=== PATIENT | female | born 1970 | race Two or more races ===

== ENCOUNTER 2021-10-11 18:30 | Inpatient (IN) | payer OTHER ==
[~2021-10-11] VITALS: Ht 154.9 cm; Wt 59.5 kg
[2021-10-11 19:42] LABS: BACTERIA,URINE FEW /HPF (0-FEW); RBC,URINE 0 /HPF (0-2); WBC,URINE OCC /HPF (0-4)
[2021-10-11 19:45] LABS: BASO # 0.1 x10^3/uL (0.0-0.2); BASO % 1 % (0-3); EOS # 0.1 x10^3/uL (0.0-0.7); EOS % 2 % (0-3); LYMPH # 3.1 x10^3/uL (1.0-4.8); LYMPH % 40 % (24-48); MEAN CORPUSCULAR HEMOGLOBIN 19 pg (25-35); MEAN CORPUSCULAR HGB CONC 30 g/dL (31-37); MEAN CORPUSCULAR VOLUME 62 fL (79-100); MONO # 0.6 x10^3/uL (0.0-1.1); MONO % 7 % (0-9); NEUT # 3.9 x10^3/uL (1.8-7.7); NEUT % 50 % (31-73); PLATELET COUNT 607 x10^3/uL (140-400); RED BLOOD COUNT 2.91 x10^6/uL (3.50-5.40); RED CELL DISTRIBUTION WIDTH 18.9 % (11.5-14.5); WHITE BLOOD COUNT 7.9 x10^3/uL (4.0-11.0)
[2021-10-11 19:47] LABS: HEMOGLOBIN 5.4 g/dL (12.0-15.5)
[2021-10-11 19:53] LABS: CALCIUM 8.3 mg/dL (8.5-10.1); CREATININE 0.6 mg/dL (0.6-1.0); GFR 105.8; POTASSIUM 3.8 mmol/L (3.5-5.1)
[2021-10-11 19:59] LABS: ALBUMIN/GLOBULIN RATIO 0.8 (1.0-1.7); TOTAL BILIRUBIN 0.1 mg/dL (0.2-1.0); TOTAL PROTEIN 6.8 g/dL (6.4-8.2)
[2021-10-11] MEDS ORDERED: ACETAMINOPHEN 325 MG TABLET. PO PRN (20:00)
--- NOTE | 2021-10-11 20:22 | RAD ---
Single view chest dated 10/11/2021 8:19 PM: COMPARISON: None Clinical Indication: Fatigue. Anemia.. Findings: Single upright portable exam of the chest was performed. Heart and mediastinal contours within normal limits. Prominent perihilar linear markings, nonspecific. No consolidation or pleural effusion. No p neumothorax. IMPRESSION: No acute radiographic abnormality. Electronically signed by: Nathanael Amaya MD (10/11/2021 8:19 PM) [facility]
[2021-10-11 20:25] LABS: PROTHROMBIN TIME PATIENT 13.7 SEC (11.7-14.0)
[2021-10-11 20:26] LABS: ANISOCYTOSIS SLIGHT; HYPOCHROMIA MARKED; MICROCYTOSIS MARKED; PLT ESTIMATE INCREASED (ADEQUATE); POIKILOCYTOSIS SLIGHT
--- NOTE | 2021-10-11 20:31 | PHYS DOC ---
Past Medical History Past Surgical History: No Surgical History Smoking Status: Never Smoker Alcohol Use: None General Adult EDM: Chief Complaint: ABNORMAL LABS HPI: HPI: Patient is a 51-year-old female who presents to the emergency department under the direction of her primary care physician Dr. Braulio Sam. She was seen for anemia follow-up on 10/10/2021 related to a previous hemoglobin of 7.1 that was drawn on 02/21/2021. Patient reports over the past 3 to 4 weeks she started feeling very fatigued. Patient denies chest pains, shortness of breath, chest or nasal congestion, denies dizziness, denies syncopal or near syncopal e pisodes. Patient states she does have heart palpitations at times however denies heart palpitations today. Patient denies nausea, vomiting, diarrhea or constipation. Patient denies increased urinary frequency, urinary pressure, urinary pain, denies hematuria or other dysuria. Patient denies seeing blood in her stool. Patient does report not having a bowel movement for the past 3 days, states she usually has a bowel movement twice a day. Patient reports a family history of ovarian cancer, reports her sister was diagnosed with ovarian cancer at age 54, states her daughter was diagnosed with ovarian cancer at age 34. Patient denies other physical complaints or physical concerns. Review of Systems: Review of Systems: 14 body systems of review of systems have been reviewed. See HPI for pertinent positives and negative responses, otherwise all other systems are negative, nonpertinent or noncontributory. Constitutional: Negative except as outlined in HPI above. Skin: Negative except as outlined in HPI above. Eyes: Negative except as outlined in HPI above. HENT: Negative except as outlined in HPI above. Respiratory: Negative except as outlined in HPI above. Cardiovascular: Negative except as outlined in HPI above. GI: Negative except as outlined in HPI above. : Negative except as outlined in HPI above. Musculoskeletal: Negative except as outlined in HPI above. Integument: Negative except as outlined in HPI above. Neurologic: Negative except as outlined in HPI above. Endocrine: Negative except as outlined in HPI above. Lymphatic: Negative except as outlined in HPI above. Psychiatric: Negative except as outlined in HPI above. Heart Score: C/O Chest Pain: No Risk Factors: Risk Factors: DM, Current or recent (<one month) smoker, HTN, HLP, family history of CAD, obesity. Risk Scores: Score 0 - 3: 2.5% MACE over next 6 weeks - Discharge Home Score 4 - 6: 20.3% MACE over next 6 weeks - Admit for Clinical Observation Score 7 - 10: 72.7% MACE over next 6 weeks - Early Invasive Strategies Current Medications: Current Medications Medications (Trade) Dose Ordered Sig/Mesha Start Time Stop Time Status Last Admin Dose Admin Acetaminophen (Tylenol) 650 mg 1X PRN PRN 10/11/21 20:00 10/12/21 19:59 Allergies: Allergies: Allergies Coded Allergies Type Severity Reaction Last Updated Verified No Known Drug Allergies 10/11/21 No Physical Exam: PE: Constitutional: Well developed, well nourished, no acute distress, non-toxic appearance. 51-year-old female in no apparent distress. HENT: Normocephalic, atraumatic. Oral mucosa pink, moist, no deep tissue infectious process appreciated, bilateral TMs intact and within normal limits, there is no lymphadenopathy of the head or neck appreciated. Eyes: Conjunctiva pale, no discharge. Neck: Normal range of motion, no stridor. Cardiovascular: No cyanosis appreciated, distal cap refill less than 2 seconds. Regular rate and rhythm, heart sounds S1-S2 auscultation. Lungs & Thorax: Patient is in no respiratory distress, no audible adventitious lung sounds appreciated. Lung sounds are clear to auscultation all lung lopez. Abdomen: Nontender, no abnormalities noted. Skin: Warm, dry, no erythema, no rash. Back: No tenderness, no deformities. Extremities: No tenderness, no cyanosis, no clubbing, ROM intact, no edema. Neurologic: Alert and oriented X 3, normal motor function, normal sensory function, no focal deficits noted. Psychologic: Affect normal, judgement normal, mood normal. 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 Patient tolerated well. Current Patient Data: Labs: Laboratory Tests Test 10/11/21 19:15 10/11/21 19:34 10/11/21 20:00 Urine Collection Type Unknown Urine Color (Auto) Colorless Urine Turbidity Clear Urine pH (Auto) 5.5 Urine Specific [place] 1.005 Urine Protein (Auto) Negative mg/dL Urine Glucose (Auto)(UA) Negative mg/dL Urine Ketones (Auto) Negative mg/dL Urine Blood (Auto) Negative Urine Nitrite Negative Urine Bilirubin (Auto) Negative Urine Urobilinogen (Auto) Normal mg/dL Urine Leukocyte Esterase (Auto) Negative Urine RBC 0 /HPF Urine WBC Occ /HPF Urine Squamous Epithelial Cells Mod /LPF Urine Bacteria Few /HPF White Blood Count 7.9 x10^3/uL Red Blood Count 2.91 x10^6/uL Hemoglobin 5.4 g/dL Hematocrit 18.0 % Mean Corpuscular Volume 62 fL Mean Corpuscular Hemoglobin 19 pg Mean Corpuscular Hemoglobin Concent 30 g/dL Red Cell Distribution Width 18.9 % Platelet Count 607 x10^3/uL Neutrophils (%) (Auto) 50 % Lymphocytes (%) (Auto) 40 % Monocytes (%) (Auto) 7 % Eosinophils (%) (Auto) 2 % Basophils (%) (Auto) 1 % Neutrophils # (Auto) 3.9 x10^3/uL Lymphocytes # (Auto) 3.1 x10^3/uL Monocytes # (Auto) 0.6 x10^3/uL Eosinophils # (Auto) 0.1 x10^3/uL Basophils # (Auto) 0.1 x10^3/uL Platelet Estimate Increased Hypochromasia Marked Poikilocytosis Slight Anisocytosis Slight Microcytosis Marked Sodium Level 140 mmol/L Potassium Level 3.8 mmol/L Chloride Level 105 mmol/L Carbon Dioxide Level 23 mmol/L Anion Gap 12 Blood Urea Nitrogen 18 mg/dL Creatinine 0.6 mg/dL Estimated GFR (Cockcroft-Gault) 105.8 BUN/Creatinine Ratio 30 Glucose Level 92 mg/dL Calcium Level 8.3 mg/dL Total Bilirubin 0.1 mg/dL Aspartate Amino Transf (AST/SGOT) 34 U/L Alanine Aminotransferase (ALT/SGPT) 42 U/L Alkaline Phosphatase 65 U/L Troponin I High Sensitivity 8 ng/L Total Protein 6.8 g/dL Albumin 3.0 g/dL Albumin/Globulin Ratio 0.8 Prothrombin Time 13.7 SEC Prothromb Time International Ratio 1.1 Fibrinogen 345 mg/dL Current Medications Medications (Trade) Dose Ordered Sig/Mesha Route PRN Reason Start Time Stop Time Status Last Admin Dose Admin Acetaminophen (Tylenol) 650 mg 1X PRN PRN PO PRE-TRANSFUSION 5/5/22 20:00 10/12/21 19:59 Laboratory Tests Test 10/11/21 19:15 10/11/21 19:34 10/11/21 20:00 Urine Collection Type Unknown Urine Color (Auto) Colorless Urine Turbidity Clear Urine pH (Auto) 5.5 (<5.0-8.0) Urine Specific [place] 1.005 (1.000-1.030) Urine Protein (Auto) Negative mg/dL (Negative) Urine Glucose (Auto)(UA) Negative mg/dL (Negative) Urine Ketones (Auto) Negative mg/dL (Negative) Urine Blood (Auto) Negative (Negative) Urine Nitrite Negative (Negative) Urine Bilirubin (Auto) Negative (Negative) Urine Urobilinogen (Auto) Normal mg/dL (Normal) Urine Leukocyte Esterase (Auto) Negative (Negative) Urine RBC 0 /HPF (0-2) Urine WBC Occ /HPF (0-4) Urine Squamous Epithelial Cells Mod /LPF Urine Bacteria Few /HPF (0-FEW) White Blood Count 7.9 x10^3/uL (4.0-11.0) Red Blood Count 2.91 x10^6/uL (3.50-5.40) L Hemoglobin 5.4 g/dL (12.0-15.5) *L Hematocrit 18.0 % (36.0-47.0) L Mean Corpuscular Volume 62 fL (79-100) L Mean Corpuscular Hemoglobin 19 pg (25-35) L Mean Corpuscular Hemoglobin Concent 30 g/dL (31-37) L Red Cell Distribution Width 18.9 % (11.5-14.5) H Platelet Count 607 x10^3/uL (140-400) H Neutrophils (%) (Auto) 50 % (31-73) Lymphocytes (%) (Auto) 40 % (24-48) Monocytes (%) (Auto) 7 % (0-9) Eosinophils (%) (Auto) 2 % (0-3) Basophils (%) (Auto) 1 % (0-3) Neutrophils # (Auto) 3.9 x10^3/uL (1.8-7.7) Lymphocytes # (Auto) 3.1 x10^3/uL (1.0-4.8) Monocytes # (Auto) 0.6 x10^3/uL (0.0-1.1) Eosinophils # (Auto) 0.1 x10^3/uL (0.0-0.7) Basophils # (Auto) 0.1 x10^3/uL (0.0-0.2) Platelet Estimate Increased (ADEQUATE) Hypochromasia Marked Poikilocytosis Slight Anisocytosis Slight Microcytosis Marked Sodium Level 140 mmol/L (136-145) Potassium Level 3.8 mmol/L (3.5-5.1) Chloride Level 105 mmol/L (98-107) Carbon Dioxide Level 23 mmol/L (21-32) Anion Gap 12 (6-14) Blood Urea Nitrogen 18 mg/dL (7-20) Creatinine 0.6 mg/dL (0.6-1.0) Estimated GFR (Cockcroft-Gault) 105.8 BUN/Creatinine Ratio 30 (6-20) H Glucose Level 92 mg/dL (70-99) Calcium Level 8.3 mg/dL (8.5-10.1) L Total Bilirubin 0.1 mg/dL (0.2-1.0) L Aspartate Amino Transferase (AST) 34 U/L (15-37) Alanine Aminotransferase (ALT) 42 U/L (14-59) Alkaline Phosphatase 65 U/L (46-116) Troponin I High Sensitivity 8 ng/L (4-50) Total Protein 6.8 g/dL (6.4-8.2) Albumin 3.0 g/dL (3.4-5.0) L Albumin/Globulin Ratio 0.8 (1.0-1.7) L Prothrombin Time 13.7 SEC (11.7-14.0) Prothrombin Time INR 1.1 (0.8-1.1) Fibrinogen 345 mg/dL (200-440) Laboratory Tests 10/11/21 19:34 Laboratory Tests 10/11/21 19:34 Vital Signs: Vital Signs Date Time Temp Pulse Resp B/P (MAP) Pulse Ox O2 Delivery O2 Flow Rate FiO2 10/11/21 18:32 97.8 91 18 148/67 (94) 100 Room Air 97.8 EKG: EKG: EKG performed at 1946 by ED nursing staff shows a normal sinus rhythm without other ectopy, heart rate 79 bpm, MT interval point 178, QTc interval 0.405, no acute STEMI, no ACS, no acute ischemia appreciated, EKG interpreted by ED attending physician Dr. Marquez. Radiology/Procedures: Radiology/Procedures: REASON: Fatigue, anemia PROCEDURE: PORTABLE CHEST 1V Single view chest dated 10/11/2021 8:19 PM: COMPARISON: None Clinical Indication: Fatigue. Anemia.. Findings: Single upright portable exam of the chest was performed. Heart and mediastinal contours within normal limits. Prominent perihilar linear markings, nonspecific. No consolidation or pleural effusion. No pneumothorax. IMPRESSION: No acute radiographic abnormality. Electronically signed by: Nathanael Amaya MD (10/11/2021 8:19 PM) [facility] [place] Med Decision Making: Course & Med Decision Making Pertinent Labs and Imaging studies reviewed. (See chart for details) 51-year-old female, vital signs reviewed, resents emerged from concerning low hemoglobin level at her physician's office that was drawn yesterday. Patient's physical examination is concerning for anemia. We will draw CBC, CMP, saline lock, EKG, urinalysis assay, high-sensitivity troponin I, 1 view chest x-ray. Patient's CBC concerning for hypochromic microcytic anemia. Hemoglobin is 5.4, MCV equal 62, MCH equals 19, MCHC equals 30. Hematocrit is 18.0. Discussed with patient recommended admission for anemia and blood transfusion, patient is amendable to ED admission planning. 2 units PRBCs ordered with type and screen, PT/INR, fibrinogen, placed page out to inpatient management physician Dr. Ferreira for admission. Called and discussed patient presentation and ED work-up with inpatient management physician Dr. Ferreira who agrees patient's presentation warrants admission to the hospital for anemia. Patient admitted to the MedSurg unit. Berenice Disclaimer: Berenice Disclaimer: This electronic medical record was generated, in whole or in part, using a voice recognition dictation system. Departure Departure Impression: Primary Impression: Anemia Qualified Codes: D64.9 - Anemia, unspecified Additional Impression: Fatigue Qualified Codes: R53.83 - Other fatigue Disposition: 09 ADMITTED INPATIENT Admitting Physician: HIMS (Admit to Dr. Ferreira to MedSurg unit.) Condition: GUARDED Referrals: NO PCP (PCP) NATHANAEL MCKAY APRN October 11, 2021 20:31
[2021-10-11 21:17] VITALS: BP 122/63
[2021-10-11 21:32] VITALS: BP 133/64
[2021-10-11 22:32] VITALS: BP 126/60
[2021-10-11 22:47] VITALS: BP 145/66
[2021-10-11 23:34] VITALS: BP 120/64
[2021-10-11 23:59] VITALS: BP 120/64
[2021-10-12 00:13] VITALS: BP 118/59
[2021-10-12 00:30] VITALS: BP 107/50
[2021-10-12 01:30] VITALS: BP 111/54
[2021-10-12 02:30] VITALS: BP 106/62
[2021-10-12 03:10] VITALS: BP 119/65
[2021-10-12] MEDS ORDERED: CYAN50004 PO (05:03)
[2021-10-12] MEDS ORDERED: LACT1CAP37 PO (05:04)
[2021-10-12 07:00] VITALS: BP 112/55
--- NOTE | 2021-10-12 09:51 | PDOC1 ---
History and Physical Date of Admission Date of Admission DATE: 10/12/21 TIME: 09:36 Identification/Chief Complaint Chief Complaint Anemia Source Source: Chart review, Patient History of Present Illness History of Present Illness Patient is a 51-year-old woman with past medical history of anemia, presents to the ED at the behest of her PCP due to abnormal lab work. Previously and 02/21/2021 she had hemoglobin 7.1. In the ED her hemoglobin was 5.4. She reports associated tachycardia and lethargy over the past 3-4 weeks. She denies any chest pain or shortness of breath. She denies any heavy menstruation, stating her menstrual cycle only lasts 2-3 days with 3 pads per day. She denies any dark stools or bloody stools. She was admitted for further medical management. Past Medical History Past Medical History Anemia Past Surgical History Past Surgical History Reviewed with patient but denies surgical history Family History Family History Reviewed with patient but denies family history Social History Smoke: No ALCOHOL: none Drugs: None Current Problem List Problem List Problems Medical Problems: (1) Anemia Status: Acute (2) Fatigue Status: Acute Current Medications Current Medications Current Medications Acetaminophen (Tylenol) 650 mg 1X PRN PRN PO PRE-TRANSFUSION; Start 10/11/21 at 20:00; Stop 10/12/21 at 19:59 Ferrous Sulfate (Feosol) 325 mg DAILYWBKFT PO ; Start 10/12/21 at 10:00 Active Scripts Active Reported Probiotic (Lactobacillus Combo No.10) 1 Each Capsule 1 Tab PO DAILY 30 Days Vitamin B-12 (Cyanocobalamin (Vitamin B-12)) 5,000 Mcg Tab.rapdis 1 Tab PO DAILY 30 Days Allergies Allergies: Coded Allergies: No Known Drug Allergies (Unverified , 10/11/21) ROS Review of System GENERAL: Weakness. No history of weight change or fevers. SKIN: No bruising, hair changes or rashes. EYES: No blurred, double or loss of vision. NOSE AND THROAT: No history of nosebleeds, hoarseness or sore throat. HEART: Palpitations. Denies chest pain. LUNGS: Denies cough, hemoptysis, wheezing or shortness of breath. GASTROINTESTINAL: Denies nausea, vomiting, abdominal pain. GENITOURINARY: Denies dysuria, frequency, urgency, hematuria. NEUROLOGIC: Denies history of numbness, tingling, tremor or weakness. PSYCHIATRIC: Denies anxiety, denies depression. ENDOCRINE: No history of heat or cold intolerance, polyuria or polydipsia. EXTREMITIES: Denies muscle weakness, joint pain, pain on walking or stiffness. Physical Exam Physical Exam General: Alert, Oriented X3, Cooperative, No acute distress HEENT: PERRLA, EOMI Lungs: Clear to auscultation, Normal air movement Heart: RRR, no murmurs Cardiovascular: S1, S2 Abdomen: Normal bowel sounds, Soft, No tenderness Extremities: No clubbing, No cyanosis Skin: No rashes, No significant lesion Neuro: Normal speech, Normal tone, Sensation intact Psych/Mental Status: Mental status NL, Mood NL Vitals Vitals Vital Signs Date Time Temp Pulse Resp B/P (MAP) Pulse Ox O2 Delivery O2 Flow Rate FiO2 10/12/21 08:00 Room Air 10/12/21 07:00 97.7 88 17 112/55 (74) 99 97.7 Labs Labs Laboratory Tests Test 10/11/21 19:15 10/11/21 19:34 10/11/21 20:00 10/12/21 04:00 Urine Collection Type Unknown Urine Color (Auto) Colorless Urine Turbidity Clear Urine pH (Auto) 5.5 (<5.0-8.0) Urine Specific [place] 1.005 (1.000-1.030) Urine Protein (Auto) Negative mg/dL (Negative) Urine Glucose (Auto)(UA) Negative mg/dL (Negative) Urine Ketones (Auto) Negative mg/dL (Negative) Urine Blood (Auto) Negative (Negative) Urine Nitrite Negative (Negative) Urine Bilirubin (Auto) Negative (Negative) Urine Urobilinogen (Auto) Normal mg/dL (Normal) Urine Leukocyte Esterase (Auto) Negative (Negative) Urine RBC 0 /HPF (0-2) Urine WBC Occ /HPF (0-4) Urine Squamous Epithelial Cells Mod /LPF Urine Bacteria Few /HPF (0-FEW) White Blood Count 7.9 x10^3/uL (4.0-11.0) Red Blood Count 2.91 x10^6/uL (3.50-5.40) Hemoglobin 5.4 g/dL (12.0-15.5) 7.6 g/dL (12.0-15.5) Hematocrit 18.0 % (36.0-47.0) Mean Corpuscular Volume 62 fL (79-100) Mean Corpuscular Hemoglobin 19 pg (25-35) Mean Corpuscular Hemoglobin Concent 30 g/dL (31-37) Red Cell Distribution Width 18.9 % (11.5-14.5) Platelet Count 607 x10^3/uL (140-400) Neutrophils (%) (Auto) 50 % (31-73) Lymphocytes (%) (Auto) 40 % (24-48) Monocytes (%) (Auto) 7 % (0-9) Eosinophils (%) (Auto) 2 % (0-3) Basophils (%) (Auto) 1 % (0-3) Neutrophils # (Auto) 3.9 x10^3/uL (1.8-7.7) Lymphocytes # (Auto) 3.1 x10^3/uL (1.0-4.8) Monocytes # (Auto) 0.6 x10^3/uL (0.0-1.1) Eosinophils # (Auto) 0.1 x10^3/uL (0.0-0.7) Basophils # (Auto) 0.1 x10^3/uL (0.0-0.2) Platelet Estimate Increased (ADEQUATE) Hypochromasia Marked Poikilocytosis Slight Anisocytosis Slight Microcytosis Marked Sodium Level 140 mmol/L (136-145) Potassium Level 3.8 mmol/L (3.5-5.1) Chloride Level 105 mmol/L (98-107) Carbon Dioxide Level 23 mmol/L (21-32) Anion Gap 12 (6-14) Blood Urea Nitrogen 18 mg/dL (7-20) Creatinine 0.6 mg/dL (0.6-1.0) Estimated GFR (Cockcroft-Gault) 105.8 BUN/Creatinine Ratio 30 (6-20) Glucose Level 92 mg/dL (70-99) Calcium Level 8.3 mg/dL (8.5-10.1) Total Bilirubin 0.1 mg/dL (0.2-1.0) Aspartate Amino Transf (AST/SGOT) 34 U/L (15-37) Alanine Aminotransferase (ALT/SGPT) 42 U/L (14-59) Alkaline Phosphatase 65 U/L (46-116) Troponin I High Sensitivity 8 ng/L (4-50) Total Protein 6.8 g/dL (6.4-8.2) Albumin 3.0 g/dL (3.4-5.0) Albumin/Globulin Ratio 0.8 (1.0-1.7) Prothrombin Time 13.7 SEC (11.7-14.0) Prothromb Time International Ratio 1.1 (0.8-1.1) Fibrinogen 345 mg/dL (200-440) Laboratory Tests Test 10/11/21 19:15 10/11/21 19:34 10/11/21 20:00 10/12/21 04:00 Urine Collection Type Unknown Urine Color (Auto) Colorless Urine Turbidity Clear Urine pH (Auto) 5.5 (<5.0-8.0) Urine Specific [place] 1.005 (1.000-1.030) Urine Protein (Auto) Negative mg/dL (Negative) Urine Glucose (Auto)(UA) Negative mg/dL (Negative) Urine Ketones (Auto) Negative mg/dL (Negative) Urine Blood (Auto) Negative (Negative) Urine Nitrite Negative (Negative) Urine Bilirubin (Auto) Negative (Negative) Urine Urobilinogen (Auto) Normal mg/dL (Normal) Urine Leukocyte Esterase (Auto) Negative (Negative) Urine RBC 0 /HPF (0-2) Urine WBC Occ /HPF (0-4) Urine Squamous Epithelial Cells Mod /LPF Urine Bacteria Few /HPF (0-FEW) White Blood Count 7.9 x10^3/uL (4.0-11.0) Red Blood Count 2.91 x10^6/uL (3.50-5.40) Hemoglobin 5.4 g/dL (12.0-15.5) 7.6 g/dL (12.0-15.5) Hematocrit 18.0 % (36.0-47.0) Mean Corpuscular Volume 62 fL (79-100) Mean Corpuscular Hemoglobin 19 pg (25-35) Mean Corpuscular Hemoglobin Concent 30 g/dL (31-37) Red Cell Distribution Width 18.9 % (11.5-14.5) Platelet Count 607 x10^3/uL (140-400) Neutrophils (%) (Auto) 50 % (31-73) Lymphocytes (%) (Auto) 40 % (24-48) Monocytes (%) (Auto) 7 % (0-9) Eosinophils (%) (Auto) 2 % (0-3) Basophils (%) (Auto) 1 % (0-3) Neutrophils # (Auto) 3.9 x10^3/uL (1.8-7.7) Lymphocytes # (Auto) 3.1 x10^3/uL (1.0-4.8) Monocytes # (Auto) 0.6 x10^3/uL (0.0-1.1) Eosinophils # (Auto) 0.1 x10^3/uL (0.0-0.7) Basophils # (Auto) 0.1 x10^3/uL (0.0-0.2) Platelet Estimate Increased (ADEQUATE) Hypochromasia Marked Poikilocytosis Slight Anisocytosis Slight Microcytosis Marked Sodium Level 140 mmol/L (136-145) Potassium Level 3.8 mmol/L (3.5-5.1) Chloride Level 105 mmol/L (98-107) Carbon Dioxide Level 23 mmol/L (21-32) Anion Gap 12 (6-14) Blood Urea Nitrogen 18 mg/dL (7-20) Creatinine 0.6 mg/dL (0.6-1.0) Estimated GFR (Cockcroft-Gault) 105.8 BUN/Creatinine Ratio 30 (6-20) Glucose Level 92 mg/dL (70-99) Calcium Level 8.3 mg/dL (8.5-10.1) Total Bilirubin 0.1 mg/dL (0.2-1.0) Aspartate Amino Transf (AST/SGOT) 34 U/L (15-37) Alanine Aminotransferase (ALT/SGPT) 42 U/L (14-59) Alkaline Phosphatase 65 U/L (46-116) Troponin I High Sensitivity 8 ng/L (4-50) Total Protein 6.8 g/dL (6.4-8.2) Albumin 3.0 g/dL (3.4-5.0) Albumin/Globulin Ratio 0.8 (1.0-1.7) Prothrombin Time 13.7 SEC (11.7-14.0) Prothromb Time International Ratio 1.1 (0.8-1.1) Fibrinogen 345 mg/dL (200-440) Images Images PATIENT: VIVIANVIDHYA ACCOUNT: [id number] : 1970 LOCATION: ER AGE: 51 SEX: F EXAM STATUS: REG ER ORD. PHYSICIAN: ROSALINDA MCKAY APRN REASON: Fatigue, anemia PROCEDURE: PORTABLE CHEST 1V Single view chest dated 10/11/2021 8:19 PM: COMPARISON: None Clinical Indication: Fatigue. Anemia.. Findings: Single upright portable exam of the chest was performed. Heart and mediastinal contours within normal limits. Prominent perihilar linear markings, nonspecific. No consolidation or pleural effusion. No pneumothorax. IMPRESSION: No acute radiographic abnormality. VTE Prophylaxis Ordered VTE Prophylaxis Devices: Yes VTE Pharmacological Prophylaxi: No Assessment/Plan Assessment/Plan Severe iron deficiency anemia Dehydration Mild malnutrition Plan: Patient received transfusions of packed red blood cells Hemoglobin improved to 7.6. No obvious sources of bleeding. She feels comfortable discharging today with PCP follow-up on Friday and further work-up for anemia. Will discharge to oral iron FEN - Regular diet PPX - SCDs FULL CODE Dispo - Home with self-care Justifications for Admission Other Justification SOPHIA LOVE MD October 12, 2021 09:51
[2021-10-12] MEDS ORDERED: FERR325T14 PO (09:54)
--- NOTE | 2021-10-12 09:58 | PDOC3 ---
Discharge Summary Visit Information Date of Admission: October 12, 2021 Date of Discharge: October 12, 2021 Final Diagnosis Problems Medical Problems: (1) Anemia Status: Acute (2) Fatigue Status: Acute Brief Hospital Course Allergies Allergies Coded Allergies Type Severity Reaction Last Updated Verified No Known Drug Allergies 10/11/21 No Vital Signs Vital Signs Date Time Temp Pulse Resp B/P (MAP) Pulse Ox O2 Delivery O2 Flow Rate FiO2 10/12/21 08:00 Room Air 10/12/21 07:00 97.7 88 17 112/55 (74) 99 97.7 Lab Results Laboratory Tests Test 10/11/21 19:15 10/11/21 19:34 10/11/21 20:00 10/12/21 04:00 Urine Collection Type Unknown Urine Color (Auto) Colorless Urine Turbidity Clear Urine pH (Auto) 5.5 (<5.0-8.0) Urine Specific [place] 1.005 (1.000-1.030) Urine Protein (Auto) Negative mg/dL (Negative) Urine Glucose (Auto)(UA) Negative mg/dL (Negative) Urine Ketones (Auto) Negative mg/dL (Negative) Urine Blood (Auto) Negative (Negative) Urine Nitrite Negative (Negative) Urine Bilirubin (Auto) Negative (Negative) Urine Urobilinogen (Auto) Normal mg/dL (Normal) Urine Leukocyte Esterase (Auto) Negative (Negative) Urine RBC 0 /HPF (0-2) Urine WBC Occ /HPF (0-4) Urine Squamous Epithelial Cells Mod /LPF Urine Bacteria Few /HPF (0-FEW) White Blood Count 7.9 x10^3/uL (4.0-11.0) Red Blood Count 2.91 x10^6/uL (3.50-5.40) Hemoglobin 5.4 g/dL (12.0-15.5) 7.6 g/dL (12.0-15.5) Hematocrit 18.0 % (36.0-47.0) Mean Corpuscular Volume 62 fL (79-100) Mean Corpuscular Hemoglobin 19 pg (25-35) Mean Corpuscular Hemoglobin Concent 30 g/dL (31-37) Red Cell Distribution Width 18.9 % (11.5-14.5) Platelet Count 607 x10^3/uL (140-400) Neutrophils (%) (Auto) 50 % (31-73) Lymphocytes (%) (Auto) 40 % (24-48) Monocytes (%) (Auto) 7 % (0-9) Eosinophils (%) (Auto) 2 % (0-3) Basophils (%) (Auto) 1 % (0-3) Neutrophils # (Auto) 3.9 x10^3/uL (1.8-7.7) Lymphocytes # (Auto) 3.1 x10^3/uL (1.0-4.8) Monocytes # (Auto) 0.6 x10^3/uL (0.0-1.1) Eosinophils # (Auto) 0.1 x10^3/uL (0.0-0.7) Basophils # (Auto) 0.1 x10^3/uL (0.0-0.2) Platelet Estimate Increased (ADEQUATE) Hypochromasia Marked Poikilocytosis Slight Anisocytosis Slight Microcytosis Marked Sodium Level 140 mmol/L (136-145) Potassium Level 3.8 mmol/L (3.5-5.1) Chloride Level 105 mmol/L (98-107) Carbon Dioxide Level 23 mmol/L (21-32) Anion Gap 12 (6-14) Blood Urea Nitrogen 18 mg/dL (7-20) Creatinine 0.6 mg/dL (0.6-1.0) Estimated GFR (Cockcroft-Gault) 105.8 BUN/Creatinine Ratio 30 (6-20) Glucose Level 92 mg/dL (70-99) Calcium Level 8.3 mg/dL (8.5-10.1) Total Bilirubin 0.1 mg/dL (0.2-1.0) Aspartate Amino Transf (AST/SGOT) 34 U/L (15-37) Alanine Aminotransferase (ALT/SGPT) 42 U/L (14-59) Alkaline Phosphatase 65 U/L (46-116) Troponin I High Sensitivity 8 ng/L (4-50) Total Protein 6.8 g/dL (6.4-8.2) Albumin 3.0 g/dL (3.4-5.0) Albumin/Globulin Ratio 0.8 (1.0-1.7) Prothrombin Time 13.7 SEC (11.7-14.0) Prothromb Time International Ratio 1.1 (0.8-1.1) Fibrinogen 345 mg/dL (200-440) Laboratory Tests Test 10/11/21 19:15 10/11/21 19:34 10/11/21 20:00 10/12/21 04:00 Urine Collection Type Unknown Urine Color (Auto) Colorless Urine Turbidity Clear Urine pH (Auto) 5.5 (<5.0-8.0) Urine Specific [place] 1.005 (1.000-1.030) Urine Protein (Auto) Negative mg/dL (Negative) Urine Glucose (Auto)(UA) Negative mg/dL (Negative) Urine Ketones (Auto) Negative mg/dL (Negative) Urine Blood (Auto) Negative (Negative) Urine Nitrite Negative (Negative) Urine Bilirubin (Auto) Negative (Negative) Urine Urobilinogen (Auto) Normal mg/dL (Normal) Urine Leukocyte Esterase (Auto) Negative (Negative) Urine RBC 0 /HPF (0-2) Urine WBC Occ /HPF (0-4) Urine Squamous Epithelial Cells Mod /LPF Urine Bacteria Few /HPF (0-FEW) White Blood Count 7.9 x10^3/uL (4.0-11.0) Red Blood Count 2.91 x10^6/uL (3.50-5.40) Hemoglobin 5.4 g/dL (12.0-15.5) 7.6 g/dL (12.0-15.5) Hematocrit 18.0 % (36.0-47.0) Mean Corpuscular Volume 62 fL (79-100) Mean Corpuscular Hemoglobin 19 pg (25-35) Mean Corpuscular Hemoglobin Concent 30 g/dL (31-37) Red Cell Distribution Width 18.9 % (11.5-14.5) Platelet Count 607 x10^3/uL (140-400) Neutrophils (%) (Auto) 50 % (31-73) Lymphocytes (%) (Auto) 40 % (24-48) Monocytes (%) (Auto) 7 % (0-9) Eosinophils (%) (Auto) 2 % (0-3) Basophils (%) (Auto) 1 % (0-3) Neutrophils # (Auto) 3.9 x10^3/uL (1.8-7.7) Lymphocytes # (Auto) 3.1 x10^3/uL (1.0-4.8) Monocytes # (Auto) 0.6 x10^3/uL (0.0-1.1) Eosinophils # (Auto) 0.1 x10^3/uL (0.0-0.7) Basophils # (Auto) 0.1 x10^3/uL (0.0-0.2) Platelet Estimate Increased (ADEQUATE) Hypochromasia Marked Poikilocytosis Slight Anisocytosis Slight Microcytosis Marked Sodium Level 140 mmol/L (136-145) Potassium Level 3.8 mmol/L (3.5-5.1) Chloride Level 105 mmol/L (98-107) Carbon Dioxide Level 23 mmol/L (21-32) Anion Gap 12 (6-14) Blood Urea Nitrogen 18 mg/dL (7-20) Creatinine 0.6 mg/dL (0.6-1.0) Estimated GFR (Cockcroft-Gault) 105.8 BUN/Creatinine Ratio 30 (6-20) Glucose Level 92 mg/dL (70-99) Calcium Level 8.3 mg/dL (8.5-10.1) Total Bilirubin 0.1 mg/dL (0.2-1.0) Aspartate Amino Transf (AST/SGOT) 34 U/L (15-37) Alanine Aminotransferase (ALT/SGPT) 42 U/L (14-59) Alkaline Phosphatase 65 U/L (46-116) Troponin I High Sensitivity 8 ng/L (4-50) Total Protein 6.8 g/dL (6.4-8.2) Albumin 3.0 g/dL (3.4-5.0) Albumin/Globulin Ratio 0.8 (1.0-1.7) Prothrombin Time 13.7 SEC (11.7-14.0) Prothromb Time International Ratio 1.1 (0.8-1.1) Fibrinogen 345 mg/dL (200-440) Brief Hospital Course Ms. Salazar is a 51 old female who presented with severe iron deficiency anemia. On admission her hemoglobin was 5.4. She reports a previous hemoglobin of 7.1 on 02/21/2021. She was transfused packed red blood cells with improvement in her hemoglobin to 7.6. She denies any heavy menstrual bleeding, dark stools, or bloody stools. She was discharged home on ferrous sulfate with close PCP follow-up. Discharge Information Condition at Discharge: Improved Disposition/Orders: D/C to Home Scheduled Cyanocobalamin (Vitamin B-12) (Vitamin B-12) 5,000 Mcg Tab.rapdis, 1 TAB PO DAILY for Vitamin B-12 Deficiency for 30 Days, #30 Ref 0 (Reported) Entered as Reported by: ROSALINDA OVALLE RN on 10/12/21502 Last Action: New Order on 10/12/21502 by ROSALINDA OVALLE RN Ferrous Sulfate (Ferrous Sulfate) 325 Mg Tablet, 1 TAB PO DAILY for Anemia, #30 Ref 3 Prescribed by: SOPHIA LOVE MD on 10/12/21953 Lactobacillus Combo No.10 (Probiotic) 1 Each Capsule, 1 TAB PO DAILY for supplement for 30 Days, #30 Ref 0 (Reported) Entered as Reported by: ROSALINDA OVALLE RN on 10/12/21503 Last Action: New Order on 10/12/21503 by ROSALINDA OVALLE RN Justicifation of Admission Dx: Justifications for Admission: Justification of Admission Dx: Yes SOPHIA LOVE MD October 12, 2021 09:58
[2021-10-12] MEDS ORDERED: FERROUS SULFATE 325 MG TABLET. PO SCH (10:00)
--- NOTE | 2021-10-12 10:25 | NUR ---
Discharge Note: [facility] Discharge instructions and discharge home medications reviewed with Patient and a copy given. All questions have been answered and understanding verbalized. The following instructions and handouts were given: Follw up with primary care and new prescriptions Discontinued lines and drains: IV removed Patient discharged to home
--- NOTE | 2021-10-13 00:19 | EKG ---
[facility] [address] [place] [id number] Test Date: 2021-10-11 Test Time: 19:46:56 Pat Name: VIDHYA PARK Department: Room: [facility] Gender: F [employer]: : [id number] Requested By: ROSALINDA MCKAY Order Number: [id number] Reading MD: Sami Nuno MD Measurements Intervals [place] Rate: 79 P: 63 RI: 178 QRS: 43 QRSD: 94 T: 42 QT: 352 QTc: 405 Interpretive Statements SINUS RHYTHM Electronically Signed On 10-15-2021 9:03:33 CDT by Sami Nuno MD
== END 2021-10-12 10:20 | disposition home or self-care (01) | DRG 812 ==
LOC: ER 18:30 → ED HOLD 20:20 → 6 SOUTH 23:32
PROVIDERS: ADMIT Internal Medicine; ATTEND Internal Medicine
PROC: 30233N1 Transfusion of Nonautologous Red Blood Cells into Peripheral Vein, Percutaneous Approach (ICD-10-PCS; principal; 2021-10-11)
DX: D50.9 Iron deficiency anemia, unspecified (principal); E44.1 Mild protein-calorie malnutrition; E86.0 Dehydration; R79.1 Abnormal coagulation profile; E53.8 Deficiency of other specified B group vitamins; Z80.41 Family history of malignant neoplasm of ovary; Z68.24 Body mass index [BMI] 24.0-24.9, adult
CPT/HCPCS: 36415; 36430; 71045; 80053; 81001; 84484; 85018; 85025; 85384; 85610; 86850; 86900; 86901; 86920; 93005; P9016; 99285-25; G0378